=== PATIENT | female | born 1985 | race Caucasian/White ===

== ENCOUNTER → 2018-11-13 | Outpatient (CLI) | payer OTHER | LOC: COL.RAD 11-08 14:30 | DX: M79.642 Pain in left hand (principal); M79.602 Pain in left arm ==

== ENCOUNTER → 2018-12-23 | Outpatient (CLI) | payer OTHER | LOC: COL.RAD 09:39 | DX: M79.642 Pain in left hand (principal) ==

== ENCOUNTER → 2019-01-22 | Outpatient (CLI) | payer OTHER | LOC: COL.RAD 09:39 | DX: M79.642 Pain in left hand (principal) | CPT/HCPCS: A9503 ==

== ENCOUNTER → 2019-01-28 | Outpatient (RCR) | payer OTHER | END | disposition home or self-care (01) | LOC: WSOT | DX: M79.89 Other specified soft tissue disorders (principal) ==

== ENCOUNTER 2019-02-27 08:00 | Outpatient (RCR) | payer OTHER | END 2019-04-10 | disposition still patient (30) | LOC: WSOT | DX: M25.442 Effusion, left hand (principal); Z87.828 Personal history of other (healed) physical injury and trauma ==